=== PATIENT | female | born 1985 | race Caucasian/White ===

== ENCOUNTER 2024-02-11 16:49 | Emergency (ER) | payer MEDICAID ==
[~2024-02-11] VITALS: Ht 152.4 cm; Wt 54.4 kg
[2024-02-11] MEDS ORDERED: oxyCODONE/APAP (5/325 MG) 1 UDTAB TABLET ONE (17:25)
[2024-02-11] MEDS: oxyCODONE/APAP (5/325 MG) 1 UDTAB TABLET PO ONE (17:29)
[2024-02-11] MEDS ORDERED: IBUP-1953 PO (18:56)
[2024-02-11] MEDS ORDERED: HYDR-3972 PO (18:56)
[2024-02-11 19:06] VITALS: BP 134/97; TEMP 98.2; O2SAT 99
== END 2024-02-11 19:06 | disposition home or self-care (01) ==
LOC: ER 16:57
DX: S52.591A Other fractures of lower end of right radius, initial encounter for closed fracture (principal); Z79.899 Other long term (current) drug therapy; V89.2XXA Person injured in unspecified motor-vehicle accident, traffic, initial encounter; Y93.89 Activity, other specified; Y92.89 Other specified places as the place of occurrence of the external cause; Y99.8 Other external cause status
CPT/HCPCS: 73090-TC